=== PATIENT | male | born 1990 | race Caucasian/White ===

== ENCOUNTER 2023-09-20 02:04 | Emergency (ER) | payer BC, SELFPAY ==
[2023-09-20 02:40] VITALS: BP 122/88; PULSE 88; RESP 16; TEMP 37.4; O2SAT 96; BMI 28.1
--- NOTE | 2023-09-20 02:54 | ED_ITS ---
HPI - General Adult General Time Seen by Provider: 02:56 Date Seen: 09/20/23 Chief complaint: Unspecified Complaint, Adult Stated complaint: MRI-Scans Time Seen by Provider: 09/20/23 02:30 Source: patient, RN notes reviewed and old records reviewed Mode of arrival: ambulatory Limitations: no limitations History of Present Illness HPI narrative: 33-year-old female who comes in for a ?2nd opinion? after being seen at [facility] yesterday. Patient apparently had a head injury a couple weeks ago, head CT scan done in followed up with his provider yesterday. He reports the CT scan was negative but the provider said he wanted him to return for further evaluation. Patient felt like the provider was not being honest with him and so comes here today for 2nd opinion. He complains of ongoing headaches and occasionally ?seeing stars. ? Notes that his ?mental health? has deteriorated since his injury, has a history of ADHD, anxiety, depression. Is taking his medications as prescribed and denies suicide or homicidal ideation. Related Data Home Medications Medication Instructions Recorded Confirmed hydroxyzine pamoate 50 mg capsule 50 mg PO BID PRN 09/20/23 09/20/23 lisdexamfetamine 30 mg capsule 30 mg PO QAM 09/20/23 09/20/23 Allergies Allergy/AdvReac Type Severity Reaction Status Date / Time Sulfa drugs Allergy Mild told he Uncoded 04/26/22 11:02 was by mother Exam Narrative: Exam Narrative: General: well nourished , NAD Head: Atraumatic and normocephalic ENT: External ears and external nose are normal Eyes: Conjunctiva clear, pupils are equal reactive, external ocular motions are intact Neck: Full spontaneous range of motion of the neck Lungs: No respiratory distress Musculoskeletal: No tenderness or deformity Neurologic: No gross focal neurologic deficits Skin: No rashes Psych: Mood and affect are appropriate, denies suicide ideation. Slightly disorganized Const: Vital Signs, click to edit/add: Vital Signs - 24 hr 09/20/23 02:40 Temperature 99.3 F Pulse Rate [Pulse Oximeter] 88 Respiratory Rate 16 Blood Pressure [Ri ght Upper Arm] 122/88 Pulse Oximetry 96 Oxygen Delivery Me thod Room Air Course Course ED Course: Patient seen examined, prior records reviewed. Patient presents today for a 2nd opinion after head injury. We discussed that the emergency department does not provide 2nd opinions, no recent head injury, and symptoms are most consistent with concussion syndrome. Patient is referred to concussion clinic although he says he is not really interested, stable for discharge Vital Signs Vital signs: Initial Vital Signs Temperature 99.3 F 09/20/23 02:40 Temperature Source Temporal Artery Scan 09/20/23 02:40 Pulse Rate 88 09/20/23 02:40 Pulse Rhythm Regular 09/20/23 02:40 Pulse Strength 3+ Normal 09/20/23 02:40 Respiratory Rate 16 09/20/23 02:40 Blood Pressure 122/88 09/20/23 02:40 Blood Pressure Mean 99 09/20/23 02:40 Blood Pressure Position Semi-Fowlers 09/20/23 02:40 Pulse Oximetry 96 09/20/23 02:40 Oxygen Delivery Method Room Air 09/20/23 02:40 Vital Signs Temperature 99.3 F 09/20/23 02:40 Pulse Rate 88 09/20/23 02:40 Respiratory Rate 16 09/20/23 02:40 Blood Pressure 122/88 09/20/23 02:40 Pulse Oximetry 96 09/20/23 02:40 Oxygen Delivery Method Room Air 09/20/23 02:40 Temperature 99.3 F 09/20/23 02:40 Pulse Rate 88 09/20/23 02:40 Respiratory Rate 16 09/20/23 02:40 Blood Pressure 122/88 09/20/23 02:40 Pulse Oximetry 96 09/20/23 02:40 Oxygen Delivery Method Room Air 09/20/23 02:40 Discharge Plan Discharge Clinical Impression: Concussion Patient Disposition: Home, Self-Care Condition: Stable Instructions: Concussion (ED) Additional Instructions: [facility] [place] Con[facility] [phone] [facility] [phone] Activity Level: Activity as Tolerated Discharge Diet: Regular Prescriptions: No Action hydroxyzine pamoate 50 mg capsule 50 mg PO BID PRN lisdexamfetamine 30 mg capsule 30 mg PO QAM Follow Up/Referrals: Provider,Not a Local [Primary Care Provider] - Stand Alone Forms: MyHealth Info Instructions
== END 2023-09-20 03:10 | disposition home or self-care (01) ==
PROVIDERS: Emergency Provider Family Medicine
DX: S06.0X0A Concussion without loss of consciousness, initial encounter (principal)
CPT/HCPCS: 95992; 99282; 99283